=== PATIENT | female | born 1990 | race Caucasian/White ===

== ENCOUNTER 2017-04-08 21:15 | Inpatient (IN) | payer OTHER, SELFPAY ==
[~2017-04-08] VITALS: Ht 160 cm; Wt 83.6 kg
[~2017-04-08 21:15] MED LIST: CODACE30 PO; HYDACE5325 PO; NAPR500 PO; PRENZ PO
[2017-04-08 21:51] LABS: BASOPHILS ABSOLUTE AUTO 0.02 K/mm3 (0.00-0.23); BASOPHILS PERCENT AUTO 0 % (0-2); EOSINOPHILS ABSOLUTE AUTO 0.06 K/mm3 (0.00-0.68); EOSINOPHILS PERCENT AUTO 1 % (0-6); Hemoglobin 10.1 g/dL (11.5-16.0); IMMATURE GRAN ABSOLUTE AUTO 0.07 K/mm3 (0.00-0.10); IMMATURE GRAN PERCENT AUTO 1 % (0-1); LYMPHOCYTES PERCENT AUTO 14 % (21-46); MONOCYTES ABSOLUTE AUTO 0.56 K/mm3 (0.16-1.47); MONOCYTES PERCENT AUTO 5 % (4-13); Mean Corpuscular HGB 28.2 pg (26.0-34.0); Mean Corpuscular HGB Conc 33.7 g/dL (31.5-36.5); Mean Corpuscular Volume 84 fL (80-100); Mean Platelet Volume 10.1 fL (9.1-12.4); NEUTROPHILS ABSOLUTE AUTO 9.85 K/mm3 (1.96-9.15); NEUTROPHILS PERCENT AUTO 80 % (41-73); Platelet Count 191 K/mm3 (150-400); RDW Coefficient Variation 12.8 % (11.7-14.2); RDW Standard Deviation 38.8 fL (35.1-46.3); Red Blood Cell Count 3.58 M/mm3 (3.80-5.20); White Blood Cell Count 12.26 K/mm3 (4.00-11.30)
[2017-04-10 05:34] LABS: BASOPHILS ABSOLUTE AUTO 0.02 K/mm3 (0.00-0.23); BASOPHILS PERCENT AUTO 0 % (0-2); EOSINOPHILS ABSOLUTE AUTO 0.06 K/mm3 (0.00-0.68); EOSINOPHILS PERCENT AUTO 1 % (0-6); Hematocrit 25.2 % (33.0-51.0); Hemoglobin 8.4 g/dL (11.5-16.0); IMMATURE GRAN ABSOLUTE AUTO 0.13 K/mm3 (0.00-0.10); IMMATURE GRAN PERCENT AUTO 1 % (0-1); LYMPHOCYTES ABSOLUTE AUTO 1.86 K/mm3 (0.84-5.20); LYMPHOCYTES PERCENT AUTO 19 % (21-46); MONOCYTES ABSOLUTE AUTO 0.67 K/mm3 (0.16-1.47); MONOCYTES PERCENT AUTO 7 % (4-13); Mean Corpuscular HGB 28.6 pg (26.0-34.0); Mean Corpuscular HGB Conc 33.3 g/dL (31.5-36.5); Mean Corpuscular Volume 86 fL (80-100); Mean Platelet Volume 10.2 fL (9.1-12.4); NEUTROPHILS ABSOLUTE AUTO 7.29 K/mm3 (1.96-9.15); NEUTROPHILS PERCENT AUTO 73 % (41-73); Platelet Count 134 K/mm3 (150-400); RDW Standard Deviation 40.5 fL (35.1-46.3); Red Blood Cell Count 2.94 M/mm3 (3.80-5.20); White Blood Cell Count 10.03 K/mm3 (4.00-11.30)
[2017-04-10] MEDS ORDERED: IBUP800 PO (12:59)
== END 2017-04-10 14:40 | disposition home or self-care (01) | DRG 775 ==
LOC: BC 21:15 → OBS 21:32 → BC 21:33
PROVIDERS: Nurse Practitioner Obstetrics & Gynecology
PROC: 10E0XZZ Delivery of Products of Conception, External Approach (ICD-10-PCS; principal; 2017-04-09)
DX: O80 Encounter for full-term uncomplicated delivery (principal); Z37.0 Single live birth; Z3A.37 37 weeks gestation of pregnancy
CPT/HCPCS: 36415; 51702; 85025; 85460; 96372; J1885; J2210; J2405; J2590; J2790; J7120

== ENCOUNTER 2017-07-09 11:27 | Day surgery (SDC) | payer OTHER ==
[~2017-07-09] VITALS: Ht 160 cm; Wt 72.1 kg
[~2017-07-09 11:27] MED LIST changes: +IBUP800 PO
== END 2017-07-09 14:43 | disposition home or self-care (01) ==
LOC: ORSCSDS 11:27
PROVIDERS: Obstetrics & Gynecology
PROC: 0UT74ZZ Resection of Bilateral Fallopian Tubes, Percutaneous Endoscopic Approach (ICD-10-PCS; principal; 2017-07-09 12:30)
DX: Z30.2 Encounter for sterilization (principal); F41.8 Other specified anxiety disorders; N80.3 Endometriosis of pelvic peritoneum
CPT/HCPCS: 88302; J0171; J0690; J1100; J1885; J2250; J2405; J2710; J3010

== ENCOUNTER → 2017-11-05 | Outpatient (CLI) | payer OTHER ==
[2017-11-09 05:15] LABS: CHLAMYDIA TRACHOMATIS, NAA Negative (Negative); NEISSERIA GONORRHOEAE, NAA Negative (Negative)
[2017-11-09 14:09] LABS: HPV 16 Negative (Negative); HPV 18 Negative (Negative); HPV OTHER HR TYPES Negative (Negative)
== END | disposition home or self-care (01) ==
LOC: LAB SHORT 10:53 → LAB 10:53
PROVIDERS: Nurse Practitioner Women's Health
DX: Z12.4 Encounter for screening for malignant neoplasm of cervix (principal); Z11.3 Encounter for screening for infections with a predominantly sexual mode of transmission
CPT/HCPCS: 87491; 87591; 87624; G0123

== ENCOUNTER 2020-06-08 00:37 | Inpatient (IN) | payer OTHER ==
[~2020-06-08] VITALS: Ht 160 cm; Wt 86.1 kg
[2020-06-08 01:19] LABS: Source, Urine Clean Catch
[2020-06-08 01:23] LABS: Bilirubin, Urine Neg (Neg); Blood, Urine 1+ (Neg); Glucose Qualitative, Urine Neg (Neg); Ketones, Urine Neg (Neg); Leukocyte Esterase, Urine 2+ (Neg); Nitrite, Urine Neg (Neg); Protein, Urine 1+ (Neg); Specific Gravity, Urine 1.015 (1.003-1.022); Urobilinogen, Urine NORM (Normal)
[2020-06-08 01:35] LABS: BASOPHILS ABSOLUTE AUTO 0.04 K/mm3 (0.00-0.23); BASOPHILS PERCENT AUTO 0 % (0-2); EOSINOPHILS ABSOLUTE AUTO 0.07 K/mm3 (0.00-0.68); EOSINOPHILS PERCENT AUTO 1 % (0-6); Hematocrit 32.5 % (33.0-51.0); Hemoglobin 10.9 g/dL (11.5-16.0); IMMATURE GRAN PERCENT AUTO 1 % (0-1); LYMPHOCYTES ABSOLUTE AUTO 1.75 K/mm3 (0.84-5.20); LYMPHOCYTES PERCENT AUTO 15 % (21-46); MONOCYTES ABSOLUTE AUTO 0.69 K/mm3 (0.16-1.47); MONOCYTES PERCENT AUTO 6 % (4-13); Mean Corpuscular HGB 29.4 pg (26.0-34.0); Mean Corpuscular HGB Conc 33.5 g/dL (31.5-36.5); Mean Corpuscular Volume 88 fL (80-100); Mean Platelet Volume 10.1 fL (9.1-12.4); NEUTROPHILS ABSOLUTE AUTO 9.17 K/mm3 (1.96-9.15); NEUTROPHILS PERCENT AUTO 78 % (41-73); Platelet Count 189 K/mm3 (150-400); RDW Coefficient Variation 14.5 % (11.7-14.2); RDW Standard Deviation 45.3 fL (35.1-46.3); Red Blood Cell Count 3.71 M/mm3 (3.80-5.20); White Blood Cell Count 11.82 K/mm3 (4.00-11.30)
[2020-06-08 01:41] LABS: Appearance, Urine Hazy (Clear); Color, Urine Yellow (P-Yellow)
[2020-06-08 01:42] LABS: Amorphous Mod (0-Heavy); Bacteria Mod /hpf; Mucus Light (0-Heavy); Red Blood Cells, Urine 0-2 /hpf (0-2); Squamous Epithelial Cells Mod /hpf (Few)
[2020-06-08] MEDS ORDERED: Calcium Acetat667 MG (01:47)
[2020-06-08] MEDS ORDERED: IRON18 MG (01:48)
[2020-06-08 02:08] LABS: Influenza A, PCR NEGATIVE (NEGATIVE); Influenza B, PCR NEGATIVE (NEGATIVE); Resp Syncytial Virus, PCR NEGATIVE (NEGATIVE); SARS-Cov-2 (COVID-19) PCR, MMC NEGATIVE (NEGATIVE)
--- NOTE | 2020-06-08 03:33 | NUR ---
06/08/20 0333 Clarence Baker BABY A GIRL BORN AT 0238 BABY B BOY BORN AT 0239 CORD BLOOD AND SEGMENTS SENT WITH RN'S.
--- NOTE | 2020-06-08 05:41 | NUR ---
ABDOMINAL BINDER IN PLACE. PATIENT PUMPED FOR 15 MIN. PLANS TO PROVIDE BREASTMILK FOR BIO PARENTS OF SURROGATE TWINS.
[2020-06-08 11:24] LABS: BASOPHILS ABSOLUTE AUTO 0.02 K/mm3 (0.00-0.23); BASOPHILS PERCENT AUTO 0 % (0-2); EOSINOPHILS ABSOLUTE AUTO 0.02 K/mm3 (0.00-0.68); EOSINOPHILS PERCENT AUTO 0 % (0-6); Hematocrit 25.3 % (33.0-51.0); Hemoglobin 8.8 g/dL (11.5-16.0); IMMATURE GRAN ABSOLUTE AUTO 0.07 K/mm3 (0.00-0.10); IMMATURE GRAN PERCENT AUTO 1 % (0-1); LYMPHOCYTES ABSOLUTE AUTO 1.34 K/mm3 (0.84-5.20); LYMPHOCYTES PERCENT AUTO 11 % (21-46); MONOCYTES PERCENT AUTO 5 % (4-13); Mean Corpuscular HGB 29.8 pg (26.0-34.0); Mean Corpuscular HGB Conc 34.8 g/dL (31.5-36.5); Mean Corpuscular Volume 86 fL (80-100); Mean Platelet Volume 10.2 fL (9.1-12.4); NEUTROPHILS ABSOLUTE AUTO 10.46 K/mm3 (1.96-9.15); NEUTROPHILS PERCENT AUTO 84 % (41-73); Platelet Count 154 K/mm3 (150-400); RDW Coefficient Variation 14.1 % (11.7-14.2); RDW Standard Deviation 43.5 fL (35.1-46.3); Red Blood Cell Count 2.95 M/mm3 (3.80-5.20); White Blood Cell Count 12.51 K/mm3 (4.00-11.30)
[2020-06-09 05:21] LABS: Hematocrit 24.1 % (33.0-51.0); Mean Corpuscular HGB 29.2 pg (26.0-34.0); Mean Corpuscular HGB Conc 33.2 g/dL (31.5-36.5); Mean Corpuscular Volume 88 fL (80-100); Mean Platelet Volume 10.2 fL (9.1-12.4); Platelet Count 146 K/mm3 (150-400); RDW Coefficient Variation 14.9 % (11.7-14.2); RDW Standard Deviation 46.3 fL (35.1-46.3); Red Blood Cell Count 2.74 M/mm3 (3.80-5.20); White Blood Cell Count 11.06 K/mm3 (4.00-11.30)
--- NOTE | 2020-06-09 05:43 | NUR ---
PT BECAME DIZZY AND HAD TO SIT DOWN RETIREMENT THROUGH SHOWER. AFTER SITTING FOR A FEW MINUTES DIZZINESS SUBSIDED AND PT AMBULATED BACK TO BED.
--- NOTE | 2020-06-09 14:31 | NUR ---
CONSULT FOR PUMPING, MOM IS A SURROGATE AND WILL BE PROVIDING EBM FOR THE BABIES. HAS PUMPED A FEW TIMES BUT FEELS THE FLANGES ARE NOT THE CORRECT SIZE AND THEY HURT. NIPPLES MEASURE 30MM SIZE. NEW FLANGES GIVEN TO TRY, I AM OUT OF THE SIZE 30, SO SIZE 36 GIVEN. SHE WILL TRY THIS NEXT PUMPING. INSTRUCT IN IMPORTANCE OF FREQUENCY OF PUMPING TO STIMULATE PRODUCTION. QUESTIONS ANSWERED.
--- NOTE | 2020-06-09 16:15 | NUR ---
pt has had baby's cert to fill out all day, has started the first page of each. she has pumped twice today. the pumped colstrum is in the freezer, not sure when they will get it to the baby's in [place]?
[2020-06-10] MEDS ORDERED: Percocet 5-3251 EACH PO (11:50)
[2020-06-10] MEDS ORDERED: IBUP800 PO (11:50)
--- NOTE | 2020-06-10 13:06 | NUR ---
PUMPING ASSIST TALKED WITH MOM ABOUT PUMPING FREQ. ORDER FOR PUMP RECIEVED PAPER WORK COMPLETED AND FACE SHEET ATTACHED TO FORM. PUMP GIVEN TO MOM WITH INSTRUCTIONS TO READ MANUAL AND INFORMATION ON EDUCATION RESOURCE SITE.
--- NOTE | 2020-06-10 13:07 | NUR ---
Printed d/c instructions and teaching reviewed w/pt. Questions answered to her satisfaction. No acute changes this shift. Denies additional questions/concerns. Pt d/c'd home ambulatory to care of .
--- NOTE | 2020-06-11 13:21 | NUR ---
LATE ENTRY OR SURGICAL CHECKLIST PER RN
== END 2020-06-10 13:05 | disposition home or self-care (01) | DRG 787 ==
LOC: OBS 00:37 → BC 00:39 → OBS 01:16 → BC 01:17
PROVIDERS: Obstetrics & Gynecology; ADMIT Advanced Practice Midwife
PROC: 10D00Z1 Extraction of Products of Conception, Low, Open Approach (ICD-10-PCS; principal; 2020-06-08 01:45)
DX: O60.13X0 Preterm labor second trimester with preterm delivery third trimester, not applicable or unspecified (principal); D62 Acute posthemorrhagic anemia; O32.1XX0 Maternal care for breech presentation, not applicable or unspecified; Z3A.31 31 weeks gestation of pregnancy; Z37.2 Twins, both liveborn; O99.02 Anemia complicating childbirth; Z20.822 Contact with and (suspected) exposure to COVID-19
CPT/HCPCS: 0241U; 36415; 81001; 82731; 85025; 85027; 85460; 86850; 86870; 86900; 86901; 87086; 88307; 96372; A9270; J0290; J0690; J1885; J2370; J2590; J2765; J2791; J3010; J7120

== ENCOUNTER 2020-06-15 01:38 | Inpatient (IN) | payer OTHER ==
[~2020-06-15] VITALS: Ht 160 cm; Wt 84.1 kg
[~2020-06-15 01:38] MED LIST changes: +Calcium Acetat667 MG; +IRON18 MG; +Percocet 5-3251 EACH PO
[2020-06-15 02:59] LABS: BASOPHILS ABSOLUTE AUTO 0.05 K/mm3 (0.00-0.23); BASOPHILS PERCENT AUTO 0 % (0-2); EOSINOPHILS ABSOLUTE AUTO 0.17 K/mm3 (0.00-0.68); EOSINOPHILS PERCENT AUTO 1 % (0-6); Hematocrit 19.8 % (33.0-51.0); Hemoglobin 6.5 g/dL (11.5-16.0); IMMATURE GRAN ABSOLUTE AUTO 0.15 K/mm3 (0.00-0.10); IMMATURE GRAN PERCENT AUTO 1 % (0-1); LYMPHOCYTES ABSOLUTE AUTO 2.43 K/mm3 (0.84-5.20); LYMPHOCYTES PERCENT AUTO 20 % (21-46); MONOCYTES ABSOLUTE AUTO 0.68 K/mm3 (0.16-1.47); MONOCYTES PERCENT AUTO 6 % (4-13); Mean Corpuscular HGB 29.5 pg (26.0-34.0); Mean Corpuscular HGB Conc 32.8 g/dL (31.5-36.5); Mean Corpuscular Volume 90 fL (80-100); Mean Platelet Volume 9.1 fL (9.1-12.4); NEUTROPHILS ABSOLUTE AUTO 8.83 K/mm3 (1.96-9.15); NEUTROPHILS PERCENT AUTO 72 % (41-73); Platelet Count 301 K/mm3 (150-400); RDW Coefficient Variation 13.9 % (11.7-14.2); RDW Standard Deviation 45.6 fL (35.1-46.3); White Blood Cell Count 12.31 K/mm3 (4.00-11.30)
[2020-06-15 03:17] LABS: Alanine Aminotransfer (ALT/SGP 25 U/L (12-78); Albumin, Blood 2.3 g/dL (3.4-5.0); Albumin/Globulin Ratio 0.6 (0.8-1.8); Alk Phos 135 U/L (50-136); Anion Gap 7 mmol/L (6-16); Aspartate Aminotrans (AST/SGOT 10 U/L (12-37); Bilirubin, Total 0.1 mg/dL (0.1-1.0); Blood Urea Nitrogen 13 mg/dL (8-24); Bun/Creatinine Ratio 22.6 (12.0-20.0); CO2, Blood 24 mmol/L (21-32); Calcium, Blood 8.3 mg/dL (8.5-10.1); Chloride, Blood 112 mmol/L (98-108); Creatinine, Blood 0.58 mg/dL (0.40-1.00); Globulin, Blood 4.1 g/dL (2.2-4.0); Glomerular Filtration Rate >60 (60-); Glucose, Blood 86 mg/dL (70-99); Potassium, Blood 3.6 mmol/L (3.5-5.5); Sodium, Blood 143 mmol/L (136-145); Total Protein, Blood 6.4 g/dL (6.4-8.2)
[2020-06-15 03:20] LABS: International Normalized Ratio 0.92; Prothrombin Time Results 9.9 Sec (9.7-11.5)
[2020-06-15] MEDS ORDERED: DOC250 PO (05:14)
--- NOTE | 2020-06-15 06:30 | NUR ---
LATE ENTRY NOC SHIFT SUMMARY FOR 06/15/20- PT IS ADMITTED TO HOSPITAL FOR PPH FOLLOWING C/S DELIVERY OF 31 WEEK TWINS 1 WEEK AGO. PT STATES SHE AWOKE AT 0100 THIS MORNING WITH HEAVY BLEEDING AND CLOTS THE SIZE OF HER FIST. INCISION APPEARS TO BE HEALING WELL AND ABD IS NON TENDER. PT HAS NO SIGNIFICANT BLEEDING SINCE ARRIVAL TO [facility]. PAIZ PAD AND DEPENDS CHANGED OUT, LIGHT BLOODY DISCHARGE NOTED ON PAD AND SMALL PLUM SIZE CLOT NOTED IN DEPENDS. PT DENIES PAIN BUT REPORTS MILD CRAMPING. FIRST OF 2 UNITS OF PRBC'S ARE TRANSFUSING AND PT STATES SHE IS FEELING BETTER. HOWEVER, PT HAD EPISODE OF DIZZINESS AND SEEING BLACK SPOTS IN VISION AFTER VOIDING. SHE IS TRANSFERRED BACK TO BED VIA AND POSITIONED SUPINE. VS WNL WITH THE EXCEPTION OF HER HR WHICH IS 110'S. WILL CONTINUE TO MONITOR AND REPORT TO ONCOMING SHIFT.
--- NOTE | 2020-06-15 15:21 | NUR ---
COVID TEST DEFERRED PER RIVETING MACHINE OPERATOR AUTOMATIC, PEDRO VASQUEZ
[2020-06-15 17:42] LABS: Hematocrit 31.8 % (33.0-51.0); Hemoglobin 10.5 g/dL (11.5-16.0); Mean Corpuscular HGB 29.3 pg (26.0-34.0); Mean Corpuscular Volume 89 fL (80-100); Mean Platelet Volume 9.1 fL (9.1-12.4); Platelet Count 273 K/mm3 (150-400); RDW Coefficient Variation 13.9 % (11.7-14.2); Red Blood Cell Count 3.58 M/mm3 (3.80-5.20); White Blood Cell Count 11.46 K/mm3 (4.00-11.30)
--- NOTE | 2020-06-15 20:00 | NUR ---
assessment completed on pt. pt fundus 2 below umb. no/scant bleeding. pt reports bleeding has lightened up significantly, no clots or heavy flow. pt reports feeling better, not dizzy when she stands up. ambulationg to bathroom fine
[2020-06-16] MEDS ORDERED: MISO200 PO (12:18)
== END 2020-06-16 12:33 | disposition home or self-care (01) | DRG 776 ==
LOC: ER 01:38 → BC 04:10
PROVIDERS: Emergency Medicine; ADMIT Obstetrics & Gynecology
PROC: 30233N1 Transfusion of Nonautologous Red Blood Cells into Peripheral Vein, Percutaneous Approach (ICD-10-PCS; principal; 2020-06-15)
DX: O72.1 Other immediate postpartum hemorrhage (principal); Z98.891 History of uterine scar from previous surgery
CPT/HCPCS: 36415; 36430; 76857; 80053; 83605; 85025; 85027; 85384; 85610; 86850; 86870; 86900; 86901; 86922; 99284; A9270; J7030; P9016

== ENCOUNTER 2021-02-12 08:45 | Day surgery (SDC) | payer OTHER ==
[~2021-02-12] VITALS: Ht 160 cm; Wt 75.8 kg
[~2021-02-12 08:45] MED LIST changes: +DOC250 PO; +MISO200 PO
[2021-02-12] MEDS ORDERED: LAMOTRIGINE PO (09:23)
--- NOTE | 2021-02-12 09:34 | NUR ---
02/12/21 0934 Sindy Voss BLOOD SERUM FOR DRAWN AND SENT TO LAB AT 0930 DUE TO DILUTION OF URINE TESTING.
--- NOTE | 2021-02-12 11:23 | NUR ---
02/12/21 1123 [place] Urbina NO FLUID DEFICIT NOTED. MDS AWARE.
== END 2021-02-12 12:45 | disposition home or self-care (01) ==
LOC: ORSCSDS 08:45
PROVIDERS: Obstetrics & Gynecology
PROC: 0UDB8ZX Extraction of Endometrium, Via Natural or Artificial Opening Endoscopic, Diagnostic (ICD-10-PCS; principal; 2021-02-12 10:00)
PROC: 0U5B8ZZ Destruction of Endometrium, Via Natural or Artificial Opening Endoscopic (ICD-10-PCS; principal; 2021-02-12 10:00)
DX: N92.0 Excessive and frequent menstruation with regular cycle (principal); N94.6 Dysmenorrhea, unspecified; Z79.899 Other long term (current) drug therapy
CPT/HCPCS: 84703; 88305; A9270; J0690; J1100; J1885; J2250; J2405; J2704; J3010; J7120